=== PATIENT | male | born 2000 | race Two or more races ===

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

== ENCOUNTER 2021-07-18 05:58 | Emergency (ER) | payer MEDICAID, OTHER ==
[~2021-07-18] VITALS: Ht 170.2 cm; Wt 59.0 kg
[2021-07-18] MEDS ORDERED: ONDANSETRON HCL 4 MG/2 ML VIAL IV ONE (10:00)
[2021-07-18] MEDS ORDERED: MORPHINE SULFATE 4 MG/ML SYR/VIAL IV ONE (10:00)
[2021-07-18 12:24] VITALS: BP 112/56
== END 2021-07-18 12:50 | disposition short-term general hospital (02) ==
LOC: EDBD 05:58 → ER 05:58 → EDSEX 05:58 → EDUNIT# 05:58 → ER 12:50
DX: S22.039A Unspecified fracture of third thoracic vertebra, initial encounter for closed fracture (principal); R51.9 Headache, unspecified; Z20.822 Contact with and (suspected) exposure to COVID-19; V43.52XA Car driver injured in collision with other type car in traffic accident, initial encounter; Y93.89 Activity, other specified; Y92.410 Unspecified street and highway as the place of occurrence of the external cause; Y99.8 Other external cause status
CPT/HCPCS: 36415; 70450; 72125; 72128; 72131; 87426; 93005; 96374; 96375; 99285; J2270; J2405